=== PATIENT | female | born 1985 | race Caucasian/White ===

== ENCOUNTER 2017-09-19 06:53 | Emergency (ER) | payer OTHER ==
[2017-09-19 07:00] VITALS: BP 121/77
[2017-09-19] MEDS ORDERED: IBUPROFEN 400 MG TABLET PO STA (07:08)
--- NOTE | 2017-09-19 07:11 | ED Physician Documentation ---
History of Present Illness - Stated complaint Stated Complaint: INDEX FINGER PX - Chief complaint Chief Complaint: Ext Problem - Additonal information Additional information: hx from pt 32 f to ER with pain and swelling to L index prox phalanx and PIP no trauma, lac, infection etc mild pain yesterday evening this AM more painful and swollen no fhx arthritis etc denies preg Review of Systems Constitutional: denies: Fever : denies: Now EGA Musculoskeletal: reports: Extremity pain PD PAST MEDICAL HISTORY - Present Medications Home Medications: Ambulatory Orders Medication Instructions Recorded Confirmed Ibuprofen [Motrin] 400 mg PO Q6H PRN #30 tablet 09/19/17 - Allergies Allergies/Adverse Reactions: Allergies Allergy/AdvReac Type Severity Reaction Status Date / Time levofloxacin [From Levaquin] AdvReac Rash Verified 09/19/17 07:00 PD ED PE NORMAL - Vitals Vital signs reviewed: Yes - Extremities Extremities: Other (L hand index is moderately diffusely swollen around prox phalanx and PIP, able to flex extend, no erthema, no wamrth, no streaking, no open wounds, MSV intact) Results - Vitals Vitals: Vital Signs - 24 hr 09/19/17 06:58 Temperature 36.5 C Heart Rate 77 Respiratory 16 Rate Blood Pressure 121/77 O2 Saturation 99 Oxygen O2 Source Room air - Rads (name of study) finger Radiology: See rad report (neg - no fx, no bony changes to suggest RA, no FB, no subcut air) Departure - Departure Disposition: 01 Home, Self Care Clinical Impression: Swelling of finger Condition: Good Follow-Up: JULIAN VILLEGAS DO [Primary Care Provider] - Prescriptions: Ibuprofen [Motrin] 400 mg PO Q6H PRN #30 tablet PRN Reason: Pain Comments: Based on your exam, the finger does not appear infected or to have gout. The xray does not show any bone problems such as a fracture or arthritis - also no signs of infection such as gas in the soft tissues. I am not sure what is causing the swelling - but it seems to be a soft tissue yonatan. This should resolve with motrin for inflammation, ice for 20 min three times a day, and rest. If not better in 3 days, please follow up with your PMD If worse (red, warm, you develop a fever etc) please come back to the ER
--- NOTE | 2017-09-19 07:47 | XRAY Report ---
EXAM: LEFT SECOND DIGIT RADIOGRAPHY EXAM DATE: 09/19/2017 07:32 AM. CLINICAL HISTORY: L index prox phal and PIP pain and swell. COMPARISON: None. TECHNIQUE: 3 views. FINDINGS: Bones: Normal. No fracture or bone lesion. Joints: Normal. No subluxations. Soft Tissues: soft tissue swelling. IMPRESSION: Normal digit radiography. [facility] Referring Provider Line: [phone] SITE ID: [id number]
--- NOTE | 2017-09-19 07:47 | XRAY Preliminary Report ---
Exam: XR FINGER(S) LT IMPRESSION: Normal digit radiography. [facility] SITE ID: [id number]
== END 2017-09-19 08:14 | disposition home or self-care (01) ==
LOC: ED 06:53
DX: R22.32 Localized swelling, mass and lump, left upper limb (principal)
CPT/HCPCS: 73140; 99283; A9270

== ENCOUNTER 2017-10-10 20:41 | Emergency (ER) | payer OTHER ==
[2017-10-10 20:46] VITALS: BP 108/71
--- NOTE | 2017-10-10 21:03 | ED Physician Documentation ---
PD HPI LOWER EXT INJURY - Stated complaint Stated Complaint: GLF - Chief complaint Chief Complaint: Ext Problem - History obtained from History obtained from: Patient - History of Present Illness PD HPI LOW EXT INJURY LOCATION: Left, Ankle Type of injury: Twist Where injury occurred: Home Timing - onset: Today Timing - details: Abrupt onset, Still present Similar symptoms before: Has not had sx before Recently seen: Not recently seen - Additional information Additional information: Patient is a 32 year old female with no significant past medical history who is presenting to the emergency department for right sided ankle pain. patient states that she was walking her dog when she stepped in a ditch and twisted her ankle. Patient denies any other trauma. Review of Systems Ten Systems: 10 systems reviewed and negative Musculoskeletal: reports: Extremity pain PD PAST MEDICAL HISTORY - Past Medical History Past Medical History: Yes - Past Surgical History Past Surgical History: No - Present Medications Home Medications: Ambulatory Orders Medication Instructions Recorded Confirmed Cetirizine [ZyrTEC] 10 mg PO DAILY 10/10/17 10/10/17 Loratadine [Claritin] 10 mg PO DAILY 10/10/17 10/10/17 raNITIdine [Zantac] 150 mg PO DAILY 10/10/17 10/10/17 - Allergies Allergies/Adverse Reactions: Allergies Allergy/AdvReac Type Severity Reaction Status Date / Time levofloxacin [From Levaquin] AdvReac Rash Verified 10/10/17 20:46 - Social History Does the pt smoke?: No Smoking Status: Never smoker Does the pt drink ETOH?: Yes Does the pt have substance abuse?: No - Immunizations Immunizations are current?: Yes - POLST Patient has POLST: No PD ED PE NORMAL - Vitals Vital signs reviewed: Yes - General General: Alert and oriented X 3 - HEENT HEENT: Atraumatic - Cardiac Cardiac: RRR - Respiratory Respiratory: No respiratory distress - Neuro Neuro: Alert and oriented X 3 PD ED PE EXPANDED - Extremities Extremities: Left ankle (mild tenderness to palpation of lateral maleolus, pain with weight bearing) Results - Vitals Vitals: Vital Signs - 24 hr 10/10/17 20:42 Temperature 36.7 C Heart Rate 77 Respiratory 15 Rate Blood Pressure 108/71 O2 Saturation 100 Oxygen O2 Source Room air - Rads (name of study) left ankle Radiology: Final report received (normal) PD MEDICAL DECISION MAKING - ED course Complexity details: reviewed old records, reviewed results, re-evaluated patient , considered differential, d/w patient ED course: Patient was seen and examined at bedside. Patient was sent for imaging. When patient returned the results were reviewed. there was no acute fracture or dislocation. patient required no further work up and was stable for discharge with outpatient follow up. - Sepsis Event Vital Signs: Vital Signs - 24 hr 10/10/17 20:42 Temperature 36.7 C Heart Rate 77 Respiratory 15 Rate Blood Pressure 108/71 O2 Saturation 100 Oxygen O2 Source Room air Departure - Departure Disposition: 01 Home, Self Care Clinical Impression: Ankle sprain Condition: Good Instructions: ED Sprain Ankle W X Ray Follow-Up: JULIAN VILLEGAS DO [Primary Care Provider] - As Needed Comments: Your x-ray today was negative. there was no fracture or dislocation. You do have an ankle sprain. You can take motrin or tylenol as needed for pain. you should ice your ankle at least 4 times a day and keep it elevated. You can wear the brace for comfort. you should follow up with your doctor if your symptoms don't improve in the next 10-14 days.
--- NOTE | 2017-10-10 21:17 | XRAY Report ---
Procedure Date: 10/10/2017 Accession Number: [id number] / [id number] Procedure: XR - Ankle 3 View RT CPT Code: FULL RESULT: EXAM: RIGHT ANKLE RADIOGRAPHY EXAM DATE: 10/10/2017 09:02 PM. CLINICAL HISTORY: Twisted ankle. COMPARISON: None. TECHNIQUE: 3 views. FINDINGS: Bones: No acute fracture. Joints: Normal. No effusion. No subluxations. The ankle mortise is normally aligned. Soft Tissues: No focal soft tissue swelling. IMPRESSION: No acute osseus abnormality. [facility]
== END 2017-10-10 21:47 | disposition home or self-care (01) ==
LOC: ED 20:41
DX: S93.402A Sprain of unspecified ligament of left ankle, initial encounter (principal); X50.1XXA Overexertion from prolonged static or awkward postures, initial encounter; Y93.K1 Activity, walking an animal; Y92.488 Other paved roadways as the place of occurrence of the external cause
CPT/HCPCS: 99282; 99283

== ENCOUNTER 2018-06-23 17:25 | Emergency (ER) | payer OTHER ==
[2018-06-23 18:25] LABS: BILIRUBIN,URINE NEGATIVE (NEGATIVE); GLUCOSE, URINE (UA) NEGATIVE (NEGATIVE); KETONES,URINE (UA) NEGATIVE (NEGATIVE); LEUKOCYTE ESTERASE, URINE NEGATIVE (NEGATIVE); NITRITE,URINE NEGATIVE (NEGATIVE); OCCULT BLOOD,URINE NEGATIVE (NEGATIVE); PH,URINE 5.5 PH (5.0-7.5); PROTEIN,URINE NEGATIVE (NEGATIVE); UROBILINOGEN,URINE 0.2 (NORMAL) E.U./dL (NORMAL)
[2018-06-23 18:32] LABS: CLARITY,URINE CLEAR (CLEAR); HCG UR QUAL NEGATIVE
--- NOTE | 2018-06-23 18:32 | ED Physician Documentation ---
History of Present Illness - Stated complaint Stated Complaint: RT BACK PX - Chief complaint Chief Complaint: UTI - History obtained from History obtained from: Patient - History of Present Illness Timing: How many days ago (2) Pain level max: 4 Pain level now: 3 - Additonal information Additional information: 33-year-old female complains of right low back pain For the past 2-3 days. She states is been gradually getting worse. States that she is not having pain with urination but it "feels funny". Her last menses was 2 weeks ago. She is not having any fevers or vomiting. She states that the pain feels like it is internal. No pain with movement or palpation. Nothing makes it better or worse Review of Systems Ten Systems: 10 systems reviewed and negative Constitutional: denies: Fever, Chills Nose: denies: Rhinorrhea / runny nose, Congestion Throat: denies: Sore throat Cardiac: denies: Chest pain / pressure Respiratory: denies: Cough GI: denies: Vomiting, Diarrhea : denies: Now EGA Skin: denies: Rash Musculoskeletal: denies: Neck pain, Back pain Neurologic: denies: Headache PD PAST MEDICAL HISTORY - Past Medical History Past Medical History: No - Past Surgical History Past Surgical History: No - Present Medications Home Medications: Ambulatory Orders Medication Instructions Recorded Confirmed Cetirizine [ZyrTEC] 10 mg PO DAILY 10/10/17 06/23/18 Loratadine [Claritin] 10 mg PO DAILY 10/10/17 06/23/18 raNITIdine [Zantac] 150 mg PO DAILY 10/10/17 06/23/18 - Allergies Allergies/Adverse Reactions: Allergies Allergy/AdvReac Type Severity Reaction Status Date / Time levofloxacin [From Levaquin] AdvReac Rash Verified 06/23/18 17:30 - Social History Does the pt smoke?: No Smoking Status: Never smoker Does the pt drink ETOH?: Yes Does the pt have substance abuse?: No - Immunizations Immunizations are current?: Yes - POLST Patient has POLST: No PD ED PE NORMAL - Vitals Vital signs reviewed: Yes - General General: Alert and oriented X 3, No acute distress, Well developed/nourished - HEENT HEENT: Moist mucous membranes - Neck Neck: Supple, no meningeal sign - Cardiac Cardiac: RRR - Respiratory Respiratory: No respiratory distress, Clear bilaterally - Abdomen Abdomen: Normal bowel sounds, Soft, Non distended, Other (Tender palpation right lower quadrant at McBurney's point. No peritoneal signs) - Back Back: No CVA TTP, No spinal TTP - Derm Derm: Warm and dry - Extremities Extremities: No edema - Neuro Neuro: Alert and oriented X 3 - Psych Psych: Normal mood, Normal affect Results - Vitals Vitals: Vital Signs - 24 hr 06/23/18 06/23/18 17:29 19:56 Temperature 36.5 C 36.6 C Heart Rate 75 78 Respiratory 16 16 Rate Blood Pressure 133/88 H 125/88 H O2 Saturation 99 99 Oxygen O2 Source Room air - Labs Labs: Laboratory Tests 06/23/18 06/23/18 06/23/18 17:56 17:56 18:50 WBC 6.6 RBC 4.91 Hgb 13.8 Hct 39.2 MCV 79.8 L MCH 28.2 MCHC 35.3 RDW 13.3 Plt Count 222 MPV 7.6 L Neut # (Auto) 3.5 Lymph # (Auto) 2.7 [place] # (Auto) 0.4 Eos # (Auto) 0.0 Baso # (Auto) 0.0 Absolute Nucleated RBC 0.00 Nucleated RBC % 0.1 Sodium Potassium Chloride Carbon Dioxide Anion Gap BUN Creatinine Estimated GFR (MDRD) Glucose Calcium Total Bilirubin AST ALT Alkaline Phosphatase Total Protein Albumin Globulin Albumin/Globulin Ratio Lipase Urine Color YELLOW Urine Clarity CLEAR Urine pH 5.5 Ur Specific [place] 1.015 1.015 Urine Protein NEGATIVE Urine Glucose (UA) NEGATIVE Urine Ketones NEGATIVE Urine Occult Blood NEGATIVE Urine Nitrite NEGATIVE Urine Bilirubin NEGATIVE Urine Urobilinogen 0.2 (NORMAL) Ur Leukocyte Esterase NEGATIVE Ur Microscopic Review NOT INDICATED Urine Culture Comments NOT INDICATED Urine HCG, Qual NEGATIVE 06/23/18 18:50 WBC RBC Hgb Hct MCV MCH MCHC RDW Plt Count MPV Neut # (Auto) Lymph # (Auto) [place] # (Auto) Eos # (Auto) Baso # (Auto) Absolute Nucleated RBC Nucleated RBC % Sodium 135 Potassium 3.5 Chloride 98 L Carbon Dioxide 27 Anion Gap 10.0 BUN 14 Creatinine 0.6 Estimated GFR (MDRD) 116 Glucose 97 Calcium 9.8 Total Bilirubin 0.4 AST 25 ALT 19 Alkaline Phosphatase 57 Total Protein 8.7 H Albumin 4.8 Globulin 3.8 Albumin/Globulin Ratio 1.2 Lipase 37 Urine Color Urine Clarity Urine pH Ur Specific [place] Urine Protein Urine Glucose (UA) Urine Ketones Urine Occult Blood Urine Nitrite Urine Bilirubin Urine Urobilinogen Ur Leukocyte Esterase Ur Microscopic Review Urine Culture Comments Urine HCG, Qual - Rads (name of study) CT abdomen pelvis Radiology: Prelim report reviewed, EMP read contemporaneously, See rad report (No acute abnormalities. ) PD MEDICAL DECISION MAKING - ED course Complexity details: reviewed results, re-evaluated patient, considered differential, d/w patient ED course: 33-year-old female with right-sided abdominal/pelvic pain. Does have a large amount of stool here, possible constipation? Also has a right ovarian corpus luteum cyst, possible this is causing her pain as well? Possible mittelschmerz? She does have a history of ovarian cyst and has recently stopped control. Her appendix is visualized and normal. We will have her follow-up with her doctor for further care. Patient counseled regarding signs and symptoms for which I believe and urgent re-evaluation would be necessary. Patient with good understanding of and agreement to plan and is comfortable going home at this time This document was made in part using voice recognition software. While efforts are made to proofread this document, sound alike and grammatical errors may occur. Departure - Departure Disposition: 01 Home, Self Care Clinical Impression: Ovarian cyst, right Condition: Good Instructions: ED Cyst Ovarian Follow-Up: JULIAN VILLEGAS DO [Primary Care Provider] - Within 1 week (if not better) Comments: This should improve over the next few days. You can use Motrin or Tylenol as needed for pain. Return if you worsen Discharge Date/Time: 06/23/18 20:50
[2018-06-23 18:58] LABS: BASOPHILS % (AUTO) 0.3 %; EOSINOPHILS % (AUTO) 0.4 %; HGB - HEMOGLOBIN 13.8 g/dL (12.0-16.0); LYMPHOCYTES # (AUTO) 2.7 10^3/uL (1.5-3.5); LYMPHOCYTES % (AUTO) 41.3 %; MEAN CORPUSCULAR HEMOGLOBIN 28.2 pg (27.0-31.0); MEAN CORPUSCULAR HGB CONC 35.3 g/dL (32.0-36.0); MEAN CORPUSCULAR VOLUME 79.8 fL (81.0-99.0); MEAN PLATELET VOLUME 7.6 fL (7.9-10.8); MONOCYTES # (AUTO) 0.4 10^3/uL (0.0-1.0); MONOCYTES % (AUTO) 5.7 %; NEUTROPHILS # (AUTO) 3.5 10^3/uL (1.5-6.6); NEUTROPHILS % (AUTO) 52.3 %; PLT - PLATELET COUNT 222 10^3/uL (130-450); RED BLOOD COUNT 4.91 10^6/uL (4.20-5.40); RED CELL DISTRIBUTION WIDTH 13.3 % (12.0-15.0); WHITE BLOOD COUNT 6.6 x10^3/uL (4.8-10.8)
[2018-06-23 19:11] LABS: ALBUMIN 4.8 g/dL (3.2-5.5); ALBUMIN/GLOBULIN RATIO 1.2 (1.0-2.2); BILIRUBIN,TOTAL 0.4 mg/dL (0.2-1.0); CALCIUM 9.8 mg/dL (8.5-10.3); CREATININE 0.6 mg/dL (0.4-1.0); TOTAL PROTEIN 8.7 g/dL (6.7-8.2)
[2018-06-23] MEDS ORDERED: IOVERSOL 320 100 ML VIAL IVP ONE ×2 (19:15→20:03)
[2018-06-23 19:57] VITALS: BP 125/88
--- NOTE | 2018-06-23 20:36 | CT Report ---
Reason: RLQ abd pain Procedure Date: 06/23/2018 Accession Number: [id number] / [id number] Procedure: CT - Abdomen/Pelvis W CPT Code: FULL RESULT: EXAM: CT ABDOMEN AND PELVIS EXAM DATE: 06/23/2018 08:01 PM. CLINICAL HISTORY: RLQ abd pain. COMPARISONS: None. TECHNIQUE: Routine helical CT imaging was performed through the abdomen and pelvis. IV contrast: 90 ML OPTIRAY 320. Enteric contrast: No. Reconstructions: Coronal and sagittal. In accordance with CT protocol optimization, one or more of the following dose reduction techniques were utilized for this exam: automated exposure control, adjustment of mA and/or KV based on patient size, or use of iterative reconstructive technique. FINDINGS: ABDOMEN: Lung Bases: Incompletely included lower lungs are grossly clear. Heart size is within normal limits. No basilar effusions. Liver: Unremarkable. Spleen: Unremarkable. Pancreas: Unremarkable. Gallbladder/Bile Ducts: Gallbladder is unremarkable. Biliary tree is normal caliber. Adrenal Glands: Unremarkable. Kidneys: No mass, calculi, or hydronephrosis. Peritoneum/Mesentery/Bowel: No free fluid, free air, or collection. No intestinal obstruction or inflammation. The appendix is within normal limits. Lymph nodes: No mesenteric, periportal, or retroperitoneal lymphadenopathy. Vasculature: Abdominal aorta is nonaneurysmal. Portal vein is patent. Hepatic veins are patent. PELVIS: The bladder is unremarkable for the degree of distention. Uterus is present. Right ovarian corpus luteum. No pelvic lymphadenopathy. Bones: No suspicious osseous lesions. IMPRESSION: No acute abnormalities. [facility]
== END 2018-06-23 20:50 | disposition home or self-care (01) ==
LOC: ED 17:25
DX: N83.11 Corpus luteum cyst of right ovary (principal)
CPT/HCPCS: 36415; 74177; 80053; 81003; 81025; 83690; 85025; 99283; Q9967; 81001; 87086

== ENCOUNTER 2019-01-06 19:55 | Emergency (ER) | payer OTHER ==
--- NOTE | 2019-01-06 20:33 | ED Physician Documentation ---
PD HPI CHEST PAIN - Stated complaint Stated Complaint: CP - Chief complaint Chief Complaint: Cardiac - History obtained from History obtained from: Patient - History of Present Illness Timing - onset: How many days ago (3) Timing - onset during: Rest Timing - duration: Days (3) Timing - details: Gradual onset, Still present Quality: Pressure, Aching, Sharp Location: Substernal Radiation: No: Jaw, Neck, Back, Abdominal, Left upper extremity, Right upper extremity Improved by: Nothing Worsened by: Other (nothing) Associated symptoms: No: Shortness of air, Diaphoresis, Nausea, Vomiting, Feeling faint / dizzy, General Weakness, Palpitations, Cough Similar symptoms before: Has not had sx before Recently seen: Not recently seen - Additional information Additional information: Previously well 33-year-old female has developed some substernal aching about 3 days ago and she has not had any modifying factors with this she is had the pain persist with her over the weekend and she is now come into the emergency department for evaluation. She states she does not have any radiation of the pain she does not have any diaphoresis dyspnea or exertional component to her pain. She does periodically have a sharp pain otherwise the pain is a dull burning. She denies any excessive use of caffeine she denies any alcohol use she denies any use of ibuprofen. Review of Systems Constitutional: denies: Fever, Chills, Myalgias, Fatigue, Sweats Eyes: denies: Decreased vision Ears: denies: Ear pain Nose: denies: Rhinorrhea / runny nose, Congestion Throat: denies: Sore throat Cardiac: reports: Chest pain / pressure. denies: Palpitations, Pedal edema, Calf pain Respiratory: denies: Dyspnea, Cough, Wheezing GI: reports: Abdominal Pain (transient 3 days ago). denies: Nausea, Vomiting : denies: Dysuria, Frequency Skin: denies: Rash Musculoskeletal: denies: Neck pain, Back pain, Extremity pain PD PAST MEDICAL HISTORY - Past Medical History Past Medical History: Yes Cardiovascular: None Respiratory: None Neuro: None Endocrine/Autoimmune: None GI: None TESTER ARMATURE OR FIELDS: None : None HEENT: Chronic sinusitis Psych: None Musculoskeletal: None Derm: None - Past Surgical History Past Surgical History: No HEENT: Other - Present Medications Home Medications: Ambulatory Orders Medication Instructions Recorded Confirmed Cetirizine [ZyrTEC] 10 mg PO DAILY 10/10/17 06/23/18 Loratadine [Claritin] 10 mg PO DAILY 10/10/17 06/23/18 raNITIdine [Zantac] 150 mg PO DAILY 10/10/17 06/23/18 Sucralfate [Carafate] 1 gm PO ACHS #60 tablet 01/06/19 - Allergies Allergies/Adverse Reactions: Allergies Allergy/AdvReac Type Severity Reaction Status Date / Time levofloxacin [From Levaquin] AdvReac Rash Verified 06/23/18 17:30 - Social History Does the pt smoke?: No Smoking Status: Never smoker Does the pt drink ETOH?: Yes Does the pt have substance abuse?: No - Immunizations Immunizations are current?: Yes - POLST Patient has POLST: No PD ED PE NORMAL - Vitals Vital signs reviewed: Yes (hypertensive mild ) - General General: Alert and oriented X 3, No acute distress, Well developed/nourished - HEENT HEENT: Atraumatic, PERRL, EOMI - Neck Neck: Supple, no meningeal sign, No bony TTP - Cardiac Cardiac: RRR, No murmur - Respiratory Respiratory: No respiratory distress, Clear bilaterally, Other (no chest wall tenderness ) - Abdomen Abdomen: Soft, Non tender - Back Back: No CVA TTP, No spinal TTP - Derm Derm: Normal color, Warm and dry, No rash - Extremities Extremities: No deformity, No edema - Neuro Neuro: Alert and oriented X 3, drill 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, No motor deficit, No sensory deficit, Normal speech Eye Opening: Spontaneous Motor: Obeys Commands Verbal: Oriented GCS Score: 15 - Psych Psych: Normal mood, Normal affect Results - Vitals Vitals: Vital Signs - 24 hr 01/06/19 01/06/19 01/06/19 20:00 20:08 21:00 Temperature 37 C Heart Rate 70 65 Respiratory 16 16 Rate Blood Pressure 141/95 H 126/89 H Blood Pressure 123/80 [Left] Blood Pressure 122/86 H [Right] O2 Saturation 100 98 Oxygen O2 Source Room air - EKG (time done) 2000 Rate: Rate (enter#) (72) QRS: LVH Other comments: Other comments (RSR' normal variant) Computer interpretation: Agree with computer - Labs Labs: Laboratory Tests 01/06/19 01/06/19 01/06/19 21:03 21:03 21:03 WBC 6.6 RBC 4.52 Hgb 12.8 Hct 38.1 MCV 84.3 MCH 28.3 MCHC 33.6 RDW 11.9 L Plt Count 228 MPV 10.1 Neut # (Auto) 3.4 Lymph # (Auto) 2.6 [place] # (Auto) 0.5 Eos # (Auto) 0.0 Baso # (Auto) 0.1 Absolute Nucleated RBC 0.00 Nucleated RBC % 0.0 Sodium 139 Potassium 3.8 Chloride 104 Carbon Dioxide 25 Anion Gap 10.0 BUN 12 Creatinine 0.7 Estimated GFR (MDRD) 97 Glucose 97 Calcium 9.5 Total Bilirubin 0.2 AST 19 ALT < 10 L Alkaline Phosphatase 38 L Troponin I High Sens < 2.3 L Total Protein 7.6 Albumin 3.9 Globulin 3.7 Albumin/Globulin Ratio 1.1 Lipase 35 Urine Color Urine Clarity Urine pH Ur Specific [place] Urine Protein Urine Glucose (UA) Urine Ketones Urine Occult Blood Urine Nitrite Urine Bilirubin Urine Urobilinogen Ur Leukocyte Esterase Ur Microscopic Review Urine Culture Comments Urine HCG, Qual 01/06/19 21:13 WBC RBC Hgb Hct MCV MCH MCHC RDW Plt Count MPV Neut # (Auto) Lymph # (Auto) [place] # (Auto) Eos # (Auto) Baso # (Auto) Absolute Nucleated RBC Nucleated RBC % Sodium Potassium Chloride Carbon Dioxide Anion Gap BUN Creatinine Estimated GFR (MDRD) Glucose Calcium Total Bilirubin AST ALT Alkaline Phosphatase Troponin I High Sens Total Protein Albumin Globulin Albumin/Globulin Ratio Lipase Urine Color YELLOW Urine Clarity CLEAR Urine pH 6.0 Ur Specific [place] 1.020 Urine Protein NEGATIVE Urine Glucose (UA) NEGATIVE Urine Ketones NEGATIVE Urine Occult Blood NEGATIVE Urine Nitrite NEGATIVE Urine Bilirubin NEGATIVE Urine Urobilinogen 0.2 (NORMAL) Ur Leukocyte Esterase NEGATIVE Ur Microscopic Review NOT INDICATED Urine Culture Comments NOT INDICATED Urine HCG, Qual NEGATIVE - Rads (name of study) chest Radiology: Prelim report reviewed (Impression: Negative chest. ), EMP read indepedently, See rad report PD MEDICAL DECISION MAKING - ED course Complexity details: reviewed old records, reviewed results, re-evaluated patient, considered differential, d/w patient ED course: 33-year-old female central chest pressure and sharp pain has improvement with use of viscous lidocaine and Mylanta and she is administered Pepcid and Carafate.Her diagnostics are otherwise unremarkable. Departure - Departure Disposition: 01 Home, Self Care Clinical Impression: Reflux esophagitis Condition: Stable Instructions: ED GERD Follow-Up: JULIAN VILLEGAS DO [Primary Care Provider] - Prescriptions: Sucralfate [Carafate] 1 gm PO ACHS #60 tablet Comments: today it appears your chest pain is related to your esophagus and reduction of acid is the mainstay of treatment. Avoid alcohol, ibuprofen, over eating and eating too close to bedtime. Take Pepcid or other over the counter medication to reduce acid on a regular basis for at least 10 days. Take the carafate with this to aid healing.
[2019-01-06] MEDS ORDERED: LIDOCAINE VISCOUS 2% 15 ML UDC MM STA (20:47)
[2019-01-06] MEDS ORDERED: MAG HYDROX/AL HYDROX/SIMETH 30 ML UDC PO STA (20:48)
[2019-01-06 21:06] LABS: BASOPHILS # (AUTO) 0.1 10^3/uL (0.0-0.1); BASOPHILS % (AUTO) 0.8 %; EOSINOPHILS % (AUTO) 0.5 %; HGB - HEMOGLOBIN 12.8 g/dL (12.0-16.0); LYMPHOCYTES # (AUTO) 2.6 10^3/uL (1.5-3.5); LYMPHOCYTES % (AUTO) 40.1 %; MEAN CORPUSCULAR HEMOGLOBIN 28.3 pg (27.0-31.0); MEAN CORPUSCULAR HGB CONC 33.6 g/dL (32.0-36.0); MEAN CORPUSCULAR VOLUME 84.3 fL (81.0-99.0); MEAN PLATELET VOLUME 10.1 fL (7.9-10.8); MONOCYTES # (AUTO) 0.5 10^3/uL (0.0-1.0); MONOCYTES % (AUTO) 7.3 %; NEUTROPHILS # (AUTO) 3.4 10^3/uL (1.5-6.6); PLT - PLATELET COUNT 228 10^3/uL (130-450); RED BLOOD COUNT 4.52 10^6/uL (4.20-5.40); RED CELL DISTRIBUTION WIDTH 11.9 % (12.0-15.0); WHITE BLOOD COUNT 6.6 x10^3/uL (4.8-10.8)
[2019-01-06 21:20] LABS: ALBUMIN 3.9 g/dL (3.2-5.5); ALBUMIN/GLOBULIN RATIO 1.1 (1.0-2.2); ALKALINE PHOSPHATASE 38 IU/L (42-121); ALT ALANINE AMINOTRANSFERASE < 10 IU/L (10-60); AST ASPARTATE AMINOTRANSFERASE 19 IU/L (10-42); BILIRUBIN,TOTAL 0.2 mg/dL (0.2-1.0); BUN - BLOOD UREA NITROGEN 12 mg/dL (6-20); CALCIUM 9.5 mg/dL (8.5-10.3); CARBON DIOXIDE - CO2 25 mmol/L (21-32); CHLORIDE 104 mmol/L (101-111); CREATININE 0.7 mg/dL (0.4-1.0); GFR - MDRD 97 (>89); GLUCOSE 97 mg/dL (70-100); LIPASE 35 U/L (22-51); SODIUM 139 mmol/L (135-145); TOTAL PROTEIN 7.6 g/dL (6.7-8.2)
[2019-01-06 21:21] LABS: BILIRUBIN,URINE NEGATIVE (NEGATIVE); GLUCOSE, URINE (UA) NEGATIVE (NEGATIVE); KETONES,URINE (UA) NEGATIVE (NEGATIVE); LEUKOCYTE ESTERASE, URINE NEGATIVE (NEGATIVE); NITRITE,URINE NEGATIVE (NEGATIVE); OCCULT BLOOD,URINE NEGATIVE (NEGATIVE); PROTEIN,URINE NEGATIVE (NEGATIVE); UROBILINOGEN,URINE 0.2 (NORMAL) E.U./dL (NORMAL)
[2019-01-06 21:22] LABS: CLARITY,URINE CLEAR (CLEAR)
[2019-01-06 21:23] LABS: HCG UR QUAL NEGATIVE
--- NOTE | 2019-01-06 21:32 | XRAY Report ---
Reason: chest pain Procedure Date: 01/06/2019 Accession Number: [id number] / [id number] Procedure: XR - Chest 2 View X-Ray CPT Code: 09801 FULL RESULT: EXAM: CHEST RADIOGRAPHY EXAM DATE: 01/06/2019 08:54 PM. CLINICAL HISTORY: Chest pain. COMPARISON: None. TECHNIQUE: 2 views. FINDINGS: Lungs/Pleura: No focal opacities evident. No pleural effusion. No pneumothorax. Normal volumes. Mediastinum: Heart and mediastinal contours are unremarkable. Other: None. IMPRESSION: Negative chest. [facility]
[2019-01-06] MEDS ORDERED: FAMOTIDINE 20 MG TABLET PO STA (21:44)
[2019-01-06] MEDS ORDERED: SUCRALFATE 1 GM/10 ML UDC PO STA (21:44)
[2019-01-06 22:14] VITALS: BP 120/78
== END 2019-01-06 22:17 | disposition home or self-care (01) ==
LOC: ED 19:55
DX: K21.0 Gastro-esophageal reflux disease with esophagitis (principal)
CPT/HCPCS: 36415; 71046; 80053; 81003; 81025; 83690; 84484; 85025; 93005; 99284; A9270; 81001; 87086

== ENCOUNTER 2020-07-17 08:00 | Outpatient (CLI) | payer OTHER | END 2020-07-17 23:59 | disposition home or self-care (01) | LOC: LAB.R 08:00 | PROVIDERS: ATTEND Nurse Practitioner | DX: N39.0 Urinary tract infection, site not specified (principal) | CPT/HCPCS: 87086 ==

== ENCOUNTER 2020-07-24 18:20 | Emergency (ER) | payer OTHER ==
[2020-07-24] MEDS ORDERED: SODIUM CHLORIDE 0.9% 1,000 ML IV STA (18:29)
[2020-07-24 18:38] LABS: BILIRUBIN,URINE NEGATIVE (NEGATIVE); GLUCOSE, URINE (UA) NEGATIVE (NEGATIVE); KETONES,URINE (UA) NEGATIVE (NEGATIVE); LEUKOCYTE ESTERASE, URINE NEGATIVE (NEGATIVE); NITRITE,URINE NEGATIVE (NEGATIVE); OCCULT BLOOD,URINE TRACE-INTA (NEGATIVE); PROTEIN,URINE NEGATIVE (NEGATIVE); UROBILINOGEN,URINE 0.2 (NORMAL) E.U./dL (NORMAL)
[2020-07-24 18:43] LABS: CLARITY,URINE CLEAR (CLEAR); HCG UR QUAL NEGATIVE
[2020-07-24 18:48] LABS: BASOPHILS % (AUTO) 0.7 %; EOSINOPHILS # (AUTO) 0.1 10^3/uL (0.0-0.7); EOSINOPHILS % (AUTO) 1.1 %; HCT - HEMATOCRIT 40.8 % (37.0-47.0); HGB - HEMOGLOBIN 14.1 g/dL (12.0-16.0); LYMPHOCYTES # (AUTO) 0.4 10^3/uL (1.5-3.5); LYMPHOCYTES % (AUTO) 8.3 %; MEAN CORPUSCULAR HEMOGLOBIN 28.8 pg (27.0-31.0); MEAN CORPUSCULAR HGB CONC 34.6 g/dL (32.0-36.0); MEAN CORPUSCULAR VOLUME 83.3 fL (81.0-99.0); MONOCYTES # (AUTO) 0.2 10^3/uL (0.0-1.0); MONOCYTES % (AUTO) 3.4 %; NEUTROPHILS # (AUTO) 3.7 10^3/uL (1.5-6.6); PLT - PLATELET COUNT 143 10^3/uL (130-450); RED CELL DISTRIBUTION WIDTH 11.9 % (12.0-15.0); WHITE BLOOD COUNT 4.4 x10^3/uL (4.8-10.8)
[2020-07-24 19:04] LABS: ALBUMIN 3.9 g/dL (3.2-5.5); BILIRUBIN,TOTAL 0.3 mg/dL (0.2-1.0); CALCIUM 9.1 mg/dL (8.5-10.3); CREATININE 0.8 mg/dL (0.4-1.0); POTASSIUM 3.9 mmol/L (3.5-5.0); TOTAL PROTEIN 7.7 g/dL (6.7-8.2)
--- NOTE | 2020-07-24 19:18 | ED Physician Documentation ---
History of Present Illness - Stated complaint Stated Complaint: N/V/D/CHILLS - Chief complaint Chief Complaint: Abd Pain - History obtained from History obtained from: Patient - History of Present Illness Timing: Today Pain level max: 3 Pain level now: 2 - Additonal information Additional information: 35-year-old female presents to the emergency department complaining of fever today, T-max 102.2 at home. Mild nasal congestion. Diarrhea x2. Minimal abdominal cramping. No vomiting. States she was recently treated for UTI with Bactrim and has finished this. No known illnesses that she has been exposed to including Covid. No cough. No urinary symptoms currently. No vaginal bleeding or discharge. Better with Tylenol, nothing makes it worse. Review of Systems Constitutional: reports: Fever, Chills Throat: denies: Sore throat Cardiac: denies: Chest pain / pressure, Palpitations Respiratory: denies: Dyspnea, Cough, Wheezing GI: reports: Abdominal Pain (crampy, diffuse), Nausea, Diarrhea. denies: Vomiting, Hematemesis, Bloody / black stool : denies: Dysuria, Frequency, Hesitancy, Now EGA Skin: denies: Rash Musculoskeletal: denies: Neck pain, Back pain Neurologic: denies: Headache PD PAST MEDICAL HISTORY - Past Medical History Past Medical History: Yes Cardiovascular: None Respiratory: None Neuro: None Endocrine/Autoimmune: None GI: None AGRICULTURE EXTENSION SPECIALIST: None : None HEENT: Chronic sinusitis Psych: None Musculoskeletal: None Derm: None - Past Surgical History Past Surgical History: No HEENT: Rhinoplasty, Other - Present Medications Home Medications: Ambulatory Orders Medication Instructions Recorded Confirmed Cetirizine [ZyrTEC] 10 mg PO DAILY 10/10/17 07/24/20 Loratadine [Claritin] 10 mg PO DAILY 10/10/17 07/24/20 Ondansetron Odt [Zofran] 4 mg TL Q6H PRN #10 tablet 07/24/20 - Allergies Allergies/Adverse Reactions: Allergies Allergy/AdvReac Type Severity Reaction Status Date / Time levofloxacin [From Levaquin] AdvReac Rash Verified 07/24/20 18:22 - Social History Does the pt smoke?: No Smoking Status: Never smoker Does the pt drink ETOH?: Yes Does the pt have substance abuse?: No - Immunizations Immunizations are current?: Yes - POLST Patient has POLST: No PD ED PE NORMAL - Vitals Vital signs reviewed: Yes - General General: Alert and oriented X 3, No acute distress - HEENT HEENT: PERRL, Ears normal, Moist mucous membranes, Pharynx benign - Neck Neck: Supple, no meningeal sign, No adenopathy - Cardiac Cardiac: RRR, Strong equal pulses - Respiratory Respiratory: No respiratory distress, Clear bilaterally - Abdomen Abdomen: Normal bowel sounds, Soft, Non tender, Non distended - Back Back: No CVA TTP, No spinal TTP - Derm Derm: Warm and dry, No rash - Extremities Extremities: No edema - Neuro Neuro: Alert and oriented X 3 - Psych Psych: Normal mood, Normal affect Results - Vitals Vitals: Vital Signs - 24 hr 07/24/20 07/24/20 07/24/20 18:23 18:49 19:45 Temperature 38.4 C H 37.6 C Heart Rate 112 H 96 87 Respiratory 20 20 16 Rate Blood Pressure 111/66 118/80 113/66 O2 Saturation 99 98 96 07/24/20 20:53 Temperature 37.9 C Heart Rate 89 Respiratory 18 Rate Blood Pressure 119/60 O2 Saturation 100 Oxygen O2 Source Room air - Labs Labs: Laboratory Tests 07/24/20 07/24/20 07/24/20 18:32 18:32 18:40 WBC 4.4 L RBC 4.90 Hgb 14.1 Hct 40.8 MCV 83.3 MCH 28.8 MCHC 34.6 RDW 11.9 L Plt Count 143 MPV 10.0 Neut # (Auto) 3.7 Lymph # (Auto) 0.4 L [place] # (Auto) 0.2 Eos # (Auto) 0.1 Baso # (Auto) 0.0 Absolute Nucleated RBC 0.00 Nucleated RBC % 0.0 Sodium Potassium Chloride Carbon Dioxide Anion Gap BUN Creatinine Estimated GFR (MDRD) Glucose Lactic Acid Calcium Total Bilirubin AST ALT Alkaline Phosphatase Total Protein Albumin Globulin Albumin/Globulin Ratio Lipase Urine Color YELLOW Urine Clarity CLEAR Urine pH 6.0 Ur Specific [place] 1.025 Urine Protein NEGATIVE Urine Glucose (UA) NEGATIVE Urine Ketones NEGATIVE Urine Occult Blood TRACE-INTA Urine Nitrite NEGATIVE Urine Bilirubin NEGATIVE Urine Urobilinogen 0.2 (NORMAL) Ur Leukocyte Esterase NEGATIVE Ur Microscopic Review NOT INDICATED Urine Culture Comments NOT INDICATED Urine HCG, Qual NEGATIVE Nasal Adenovirus (PCR) Nasal B. parapertussis DNA (PCR) Nasal Coronavir 229E PCR Nasal Coronavir HKU1 PCR Nasal Coronavir NL63 PCR Nasal Coronavir OC43 PCR Nasal Enterovir/Rhinovir PCR Nasal Influenza B PCR Nasal Influenza A PCR Nasal Parainfluen 1 PCR Nasal Parainfluen 2 PCR Nasal Parainfluen 3 PCR Nasal Parainfluen 4 PCR Nasal RSV (PCR) Nasal B.pertussis DNA PCR Nasal C.pneumoniae (PCR) [place] Human Metapneumo PCR Nasal M.pneumoniae (PCR) Nasal SARS-CoV-2 (PCR) 07/24/20 07/24/20 07/24/20 18:40 18:40 19:14 WBC RBC Hgb Hct MCV MCH MCHC RDW Plt Count MPV Neut # (Auto) Lymph # (Auto) [place] # (Auto) Eos # (Auto) Baso # (Auto) Absolute Nucleated RBC Nucleated RBC % Sodium 131 L Potassium 3.9 Chloride 100 L Carbon Dioxide 20 L Anion Gap 11.0 BUN 13 Creatinine 0.8 Estimated GFR (MDRD) 82 L Glucose 109 H Lactic Acid 1.7 Calcium 9.1 Total Bilirubin 0.3 AST 23 ALT 16 Alkaline Phosphatase 51 Total Protein 7.7 Albumin 3.9 Globulin 3.8 Albumin/Globulin Ratio 1.0 Lipase 32 Urine Color Urine Clarity Urine pH Ur Specific [place] Urine Protein Urine Glucose (UA) Urine Ketones Urine Occult Blood Urine Nitrite Urine Bilirubin Urine Urobilinogen Ur Leukocyte Esterase Ur Microscopic Review Urine Culture Comments Urine HCG, Qual Nasal Adenovirus (PCR) NOT DETECTED Nasal B. parapertussis DNA (PCR) NOT DETECTED Nasal Coronavir 229E PCR NOT DETECTED Nasal Coronavir HKU1 PCR NOT DETECTED Nasal Coronavir NL63 PCR NOT DETECTED Nasal Coronavir OC43 PCR NOT DETECTED Nasal Enterovir/Rhinovir PCR NOT DETECTED Nasal Influenza B PCR NOT DETECTED Nasal Influenza A PCR NOT DETECTED Nasal Parainfluen 1 PCR NOT DETECTED Nasal Parainfluen 2 PCR NOT DETECTED Nasal Parainfluen 3 PCR NOT DETECTED Nasal Parainfluen 4 PCR NOT DETECTED Nasal RSV (PCR) NOT DETECTED Nasal B.pertussis DNA PCR NOT DETECTED Nasal C.pneumoniae (PCR) NOT DETECTED [place] Human Metapneumo PCR NOT DETECTED Nasal M.pneumoniae (PCR) NOT DETECTED Nasal SARS-CoV-2 (PCR) NOT DETECTED PD MEDICAL DECISION MAKING - ED course Complexity details: reviewed results, re-evaluated patient, considered differential, d/w patient ED course: Unclear etiology the patient's symptoms. Appears to be a likely viral illness. Possible viral gastroenteritis. Abdomen remains soft, nontender nondistended on serial exam. Negative viral panel. Negative Covid. Negative urine testing. No evidence of upper respiratory illness. No indication for x-ray. We will prescribe antiemetics for home and have her follow-up with her doctor as needed for further care. Patient is very well-appearing, nontoxic. Patient counseled regarding signs and symptoms for which I believe and urgent re-evaluation would be necessary. Patient with good understanding of and agreement to plan and is comfortable going home at this time This document was made in part using voice recognition software. While efforts are made to proofread this document, sound alike and grammatical errors may occur. Departure - Departure Disposition: 01 Home, Self Care Clinical Impression: Viral gastroenteritis Condition: Good Instructions: ED Gastroenteritis Viral Follow-Up: JULIAN VILLEGAS DO [Primary Care Provider] - Within 1 week Prescriptions: Ondansetron Odt [Zofran] 4 mg TL Q6H PRN #10 tablet PRN Reason: Nausea / Vomiting Comments: Your testing does not show any acute abnormalities today. Follow-up with your doctor for further care. Drink plenty of fluids and rest. Your Covid test was negative today as well. Discharge Date/Time: 07/24/20 20:40
[2020-07-24 20:08] LABS: B. PARAPERTUSSIS- RESP PCR PAN NOT DETECTED; B. PERTUSSIS- RESP PCR PANEL NOT DETECTED; C. PNEUMONIAE- RESP PCR PANEL NOT DETECTED; CORONAVIRUS 229E-RESP PCR NOT DETECTED; CORONAVIRUS HKU1-RESP PCR NOT DETECTED; CORONAVIRUS NL63-RESP PCR NOT DETECTED; CORONAVIRUS OC43-RESP PCR NOT DETECTED; HUMAN METAPNEUMOVIRUS NOT DETECTED; INFLUENZA A- RESP PCR PANEL NOT DETECTED; INFLUENZA B - RESP PCR PANEL NOT DETECTED; M. PNEUMONIAE- RESP PCR PANEL NOT DETECTED; PARAINFLUENZA VIRUS 1 NOT DETECTED; PARAINFLUENZA VIRUS 2 NOT DETECTED; PARAINFLUENZA VIRUS 3 NOT DETECTED; PARAINFLUENZA VIRUS 4 NOT DETECTED; RHINOVIRUS/ENTEROVIRUS NOT DETECTED; RSV- RESP PCR PANEL NOT DETECTED; SARS-CoV-2 -RESP PCR PANEL NOT DETECTED
[2020-07-24 20:55] VITALS: BP 119/60
--- OUTSIDE RECORDS SUMMARY | 2020-07-29 02:21 | EXTERNAL MEDICAL SUMMARY RPT | Continuity of Care Document ---
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 Unavailable Unavailable MD Unavailable Unavailable Problems date description facility 20200522 Adverse effect of other vaccines and bi ological substances, All initial encounter 20200522 Details of drug misuse behavior All 20200522 Other and unspecified vaccines and biol ogical substances All causing adverse effects in therapeutic u se 20200522 Patient Education All 20200522 Adverse reaction to vaccine product Al l 20200522 Never smoker All 20200522 Tobacco use and exposure All 02337844 Alcohol use All 20642352 Tobacco smoking status NHIS All 50544690 Tobacco use and exposure All 20200524 Details of drug misuse behavior All 20200524 Never smoker All 20200524 Tobacco smoking status NHIS All 20200524 Alcohol use All 20200717 Acute urinary tract infection All 54741639 Alcohol use All 33068529 Tobacco use and exposure All 17582618 Urinary tract infection, site not speci fied All 99818459 Details of drug misuse behavior All 20200717 Never smoker All 74679691 Tobacco smoking status NHIS All 27582868 Urine C&S All Medications date description facility 06963739 [facility] All 40082501 FLUTICASONE PROPIONATE HFA All 73634446 DROSPIRENONE-ETHINYL ESTRADIOL All 06919330 [facility]PH[facility] All 04574284 DROSPIRENONE-ETHINYL ESTRADIOL All 59763973 FLUTICASONE PROPIONATE HFA All 92793314 CEPHAL[facility] All 23818309 FLUTICASONE PROPIONATE HFA All 52271237 DROSPIRENONE-ETHINYL ESTRADIOL All 29214425 CEPHALEXIN All 92306091 DROSPIRENONE-ETHINYL ESTRADIOL All 23093342 FLUTICASONE PROPIONATE HFA All 48961044 CEPHAL[facility]IN All 25371138 FLUTICASONE PROPIONATE HFA All 90569690 DROSPIRENONE-ETHINYL ESTRADIOL All 72207100 CEPHALEXIN All 30061264 DROSPIRENONE-ETHINYL ESTRADIOL All 26078424 FLUTICASONE PROPIONATE HFA All 59106826 HYDROXYZINE HCL All 06054622 FAMOTIDINE All 01075049 FAMOTIDINE All [id number] HYDROXYZINE HCL All 75949742 HYDROXYZINE HCL All 70254482 FAMOTIDINE All 98070656 FAMOTIDINE All 13152178 HYDROXYZINE HCL All 13609316 HYDROXYZINE HCL All 35655610 FAMOTIDINE All 92509675 FAMOTIDINE All 34817650 HYDROXYZINE HCL All 96735656 SULFAMETHOXAZOLE-TRIMETHOPRIM All 71948401 PHENAZOPYRIDINE HCL All 13377641 PHENAZOPYRIDINE HCL All 43000460 SULFAMETHOXAZOLE-TRIMETHOPRIM All 61148367 SULFAMETHOXAZOLE-TRIMETHOPRIM All 92072429 PHENAZOPYRIDINE HCL All 41827023 PHENAZOPYRIDINE HCL All 82941026 SULFAMETHOXAZOLE-TRIMETHOPRIM All Procedures date description facility [id number] IM or SQ Injection All date description facility [id number] Dexamethasone Sodium Phosphate Inj 10mg /1mL All date description facility 06928882 IM or SQ Injection All date description facility 08020568 Dexamethasone Sodium Phosphate Inj 10mg /1mL All date description facility 27161612 IM or SQ Injection All date description facility 79714750 Dexamethasone Sodium Phosphate Inj 10mg /1mL All date description facility 74314251 POC URINALYSIS DIP All date description facility 99216794 POC URINALYSIS DIP All Results test status date ordered by attending specimen stuart e DIPSTICK_URINE_STRIP_L unknown [id number] unknown unknown unknown OT_NUMBER Urine_HCG_Lot_Number_C unknown [id number] unknown unknown unknown LIA_Waived_ Urine_HCG_Exp_Date_CLI unknown 01321954 unknown unknown unknown A_Waived_ protein_urine_semiquan unknown 03630130 unknown unknown unknown titative_dipstick_ glucose_urine_semiquan unknown 91499540 unknown unknown unknown titative Erythrocytes_area_in_U unknown 57207918 unknown unknown unknown rine_sediment_by_Micros copy_high_power_field RBC_urine_dipstick unknown 26286274 unknown unknown unkn own Albumin_Presence_in_Ur unknown 53324588 unknown unknown unknown ine Choriogonadotropin_pre unknown 44393082 unknown unknown unknown gnancy_test_Presence_in _Urine human_chorionic_gonado unknown 10926324 unknown unknown unknown tropin_urine_qualitativ e_urine_pregnancy_test_ urine_color unknown 93131806 unknown unknown unknown bilirubin_urine unknown 38432662 unknown unknown unknown ketones_urine_by_test_ unknown 07842938 unknown unknown unknown strip nitrite_urine_semiquan unknown 14449490 unknown unknown unknown titative pH_urine_semiquantitat unknown 25947246 unknown unknown unknown eloy specific_gravity_urine unknown 26333438 unknown unknown unknown urobilinogen_urine_sem unknown 31530572 unknown unknown unknown iquantitative_dipstick_ leukocyte_esterase_uri unknown 62967763 unknown unknown unknown ne_by_dipstick appearance_urine unknown 02886892 unknown unknown unknow n urinalysis_routine unknown 28045410 unknown unknown unkn own Appearance_of_Urine unknown 86434575 unknown unknown unk nown Bilirubin.total_Presen unknown 20673050 unknown unknown unknown ce_in_Urine_by_Test_str ip Color_of_Urine unknown 75352323 unknown unknown unknown Glucose_Mass_volume_in unknown 09308774 unknown unknown unknown _Urine_by_Test_strip Ketones_Mass_volume_in unknown 31615352 unknown unknown unknown _Urine_by_Test_strip Leukocyte_esterase_Pre unknown 37292736 unknown unknown unknown sence_in_Urine_by_Test_ strip Nitrite_Presence_in_Ur unknown 22396918 unknown unknown unknown ine_by_Test_strip pH_of_Urine_by_Test_st unknown 03610034 unknown unknown unknown rip Specific_gravity_of_Ur unknown 68505720 unknown unknown unknown ine_by_Test_strip Urobilinogen_Presence_ unknown 20200717 unknown unknown unknown in_Urine_by_Test_strip DIPSTICK_URINE_STRIP_L unknown 82502772 unknown unknown unknown OT_NUMBER Urine_HCG_Lot_Number_C unknown 27940084 unknown unknown unknown LIA_Waived_ Urine_HCG_Exp_Date_CLI unknown 63585361 unknown unknown unknown A_Waived_ protein_urine_semiquan unknown 11073122 unknown unknown unknown titative_dipstick_ glucose_urine_semiquan unknown 25338555 unknown unknown unknown titative Erythrocytes_area_in_U unknown 90359562 unknown unknown unknown rine_sediment_by_Micros copy_high_power_field RBC_urine_dipstick unknown 11097960 unknown unknown unkn own Albumin_Presence_in_Ur unknown 95422197 unknown unknown unknown ine Choriogonadotropin_pre unknown 13218708 unknown unknown unknown gnancy_test_Presence_in _Urine human_chorionic_gonado unknown 41824301 unknown unknown unknown tropin_urine_qualitativ e_urine_pregnancy_test_ urine_color unknown 89506165 unknown unknown unknown bilirubin_urine unknown 63601483 unknown unknown unknown ketones_urine_by_test_ unknown 20200717 unknown unknown unknown strip nitrite_urine_semiquan unknown 00645474 unknown unknown unknown titative pH_urine_semiquantitat unknown 40310162 unknown unknown unknown eloy specific_gravity_urine unknown 35928000 unknown unknown unknown urobilinogen_urine_sem unknown 01110553 unknown unknown unknown iquantitative_dipstick_ leukocyte_esterase_uri unknown 19572315 unknown unknown unknown ne_by_dipstick appearance_urine unknown 84634289 unknown unknown unknow n urinalysis_routine unknown 58032893 unknown unknown unkn own Appearance_of_Urine unknown 82289181 unknown unknown unk nown Bilirubin.total_Presen unknown 15741036 unknown unknown unknown ce_in_Urine_by_Test_str ip Color_of_Urine unknown 31420972 unknown unknown unknown Glucose_Mass_volume_in unknown 58382999 unknown unknown unknown _Urine_by_Test_strip Ketones_Mass_volume_in unknown 85738612 unknown unknown unknown _Urine_by_Test_strip Leukocyte_esterase_Pre unknown 36467365 unknown unknown unknown sence_in_Urine_by_Test_ strip Nitrite_Presence_in_Ur unknown 78641584 unknown unknown unknown ine_by_Test_strip pH_of_Urine_by_Test_st unknown 00537772 unknown unknown unknown rip Specific_gravity_of_Ur unknown 26772506 unknown unknown unknown ine_by_Test_strip Urobilinogen_Presence_ unknown 13848349 unknown unknown unknown in_Urine_by_Test_strip facility observation status value reference units lab abnor mal line range code notes All DIPSTICK_URI unknown 5067 unknown _1014 unknown unknown NE_STRIP_LOT_ 00 NUMBER All Urine_HCG_Lo unknown [id number] unknown _1149 unkn own unknown t_Number_CLIA 9 40 _Waived_ All Urine_HCG_Ex unknown 2021-11-24 unknown _1149 unkn own unknown p_Date_CLIA_W 1 41 aived_ All protein_urin unknown negative unknown _118 unkno wn unknown e_semiquantit ative_dipstic k_ All glucose_urin unknown negative unknown _123 unkno wn unknown e_semiquantit ative All Erythrocytes unknown non-hemol unknown _1394 unkn own unknown _area_in_Urin yzed trace 5-1 e_sediment_by _Microscopy_h igh_power_fie ld All RBC_urine_di unknown non-hemol unknown _1700 unkn own unknown pstick yzed trace 005 All Albumin_Pres unknown negative unknown _1753 unkno wn unknown ence_in_Urine -3 All Choriogonado unknown Negative unknown _2106 unkno wn unknown tropin_pregna -3 ncy_test_Pres ence_in_Urine All human_chorio unknown Negative unknown _2578 unkno wn unknown nic_gonadotro pin_urine_qua litative_urin e_pregnancy_t est_ All urine_color unknown yellow unknown _2751 unknown unknown All bilirubin_ur unknown 1+ unknown _319 unknown unknown ine All ketones_urin unknown small unknown _322 unknown unknown e_by_test_str (15) ip All nitrite_urin unknown negative unknown _323 unkno wn unknown e_semiquantit ative All pH_urine_sem unknown 6 unknown _324 unknown unknown iquantitative All specific_gra unknown 1.015 unknown _325 unknown unknown vity_urine All urobilinogen unknown 0.2 unknown _326 unknown unknown _urine_semiqu antitative_di pstick_ All leukocyte_es unknown 1+ unknown _327 unknown unknown terase_urine_ by_dipstick All appearance_u unknown hazy unknown _328 unknown unknown rine All urinalysis_r unknown Clean unknown _47 unknown unknown outine Catch All Appearance_o unknown hazy unknown _5767 unknown unknown f_Urine -9 All Bilirubin.to unknown 1+ unknown _5770 unknown unknown tal_Presence_ -3 in_Urine_by_T est_strip All Color_of_Uri unknown yellow unknown _5778 unknown unknown ne -6 All Glucose_Mass unknown negative unknown _5792 unkno wn unknown _volume_in_Ur -7 ine_by_Test_s trip All Ketones_Mass unknown small unknown _5797 unknown unknown _volume_in_Ur (15) -6 ine_by_Test_s trip All Leukocyte_es unknown 1+ unknown _5799 unknown unknown terase_Presen -2 ce_in_Urine_b y_Test_strip All Nitrite_Pres unknown negative unknown _5802 unkno wn unknown ence_in_Urine -4 _by_Test_stri p All pH_of_Urine_ unknown 6 unknown _5803 unknown unknown by_Test_strip -2 All Specific_gra unknown 1.015 unknown _5811 unknown unknown vity_of_Urine -5 _by_Test_stri p All Urobilinogen unknown 0.2 unknown _5818 unknown unknown _Presence_in_ -0 Urine_by_Test _strip All DIPSTICK_URI unknown 5067 unknown _1014 unknown unknown NE_STRIP_LOT_ 00 NUMBER All Urine_HCG_Lo unknown [id number] unknown _1149 unkn own unknown t_Number_CLIA 9 40 _Waived_ All Urine_HCG_Ex unknown 2021-11-24 unknown _1149 unkn own unknown p_Date_CLIA_W 1 41 aived_ All protein_urin unknown negative unknown _118 unkno wn unknown e_semiquantit ative_dipstic k_ All glucose_urin unknown negative unknown _123 unkno wn unknown e_semiquantit ative All Erythrocytes unknown non-hemol unknown _1394 unkn own unknown _area_in_Urin yzed trace 5-1 e_sediment_by _Microscopy_h igh_power_fie ld All RBC_urine_di unknown non-hemol unknown _1700 unkn own unknown pstick yzed trace 005 All Albumin_Pres unknown negative unknown _1753 unkno wn unknown ence_in_Urine -3 All Choriogonado unknown Negative unknown _2106 unkno wn unknown tropin_pregna -3 ncy_test_Pres ence_in_Urine All human_chorio unknown Negative unknown _2578 unkno wn unknown nic_gonadotro pin_urine_qua litative_urin e_pregnancy_t est_ All urine_color unknown yellow unknown _2751 unknown unknown All bilirubin_ur unknown 1+ unknown _319 unknown unknown ine All ketones_urin unknown small unknown _322 unknown unknown e_by_test_str (15) ip All nitrite_urin unknown negative unknown _323 unkno wn unknown e_semiquantit ative All pH_urine_sem unknown 6 unknown _324 unknown unknown iquantitative All specific_gra unknown 1.015 unknown _325 unknown unknown vity_urine All urobilinogen unknown 0.2 unknown _326 unknown unknown _urine_semiqu antitative_di pstick_ All leukocyte_es unknown 1+ unknown _327 unknown unknown terase_urine_ by_dipstick All appearance_u unknown hazy unknown _328 unknown unknown rine All urinalysis_r unknown Clean unknown _47 unknown unknown outine Catch All Appearance_o unknown hazy unknown _5767 unknown unknown f_Urine -9 All Bilirubin.to unknown 1+ unknown _5770 unknown unknown tal_Presence_ -3 in_Urine_by_T est_strip All Color_of_Uri unknown yellow unknown _5778 unknown unknown ne -6 All Glucose_Mass unknown negative unknown _5792 unkno wn unknown _volume_in_Ur -7 ine_by_Test_s trip All Ketones_Mass unknown small unknown _5797 unknown unknown _volume_in_Ur (15) -6 ine_by_Test_s trip All Leukocyte_es unknown 1+ unknown _5799 unknown unknown terase_Presen -2 ce_in_Urine_b y_Test_strip All Nitrite_Pres unknown negative unknown _5802 unkno wn unknown ence_in_Urine -4 _by_Test_stri p All pH_of_Urine_ unknown 6 unknown _5803 unknown unknown by_Test_strip -2 All Specific_gra unknown 1.015 unknown _5811 unknown unknown vity_of_Urine -5 _by_Test_stri p All Urobilinogen unknown 0.2 unknown _5818 unknown unknown _Presence_in_ -0 Urine_by_Test _strip Vital Signs date measurement value source 20200522 BMI 25.03 kg/m2 20200522 BP_diastolic 70 mm[Hg] 20200522 BP_systolic 116 mm[Hg] 20200522 heart_rate 64 /min 20200522 height_metric 154.94 cm 20200522 height_standard 61 in 20200522 respiration_rate 16 /min 20200522 temperature_metric 37.06 C 20200522 temperature_standard 98.7 F 20200522 weight_metric 59.87 kg 20200522 weight_standard 132 lb date measurement value source 20200524 BMI 25.03 kg/m2 20200524 BP_diastolic 71 mm[Hg] 20200524 BP_systolic 110 mm[Hg] 20200524 heart_rate 64 /min 20200524 height_metric 154.94 cm 20200524 height_standard 61 in 20200524 respiration_rate 12 /min 20200524 temperature_metric 36.89 C 20200524 temperature_standard 98.4 F 20200524 weight_metric 59.87 kg 20200524 weight_standard 132 lb date measurement value source 20200717 BMI 25.64 kg/m2 20200717 BP_diastolic 82 mm[Hg] 20200717 BP_systolic 121 mm[Hg] 20200717 heart_rate 63 /min 20200717 height_metric 154.94 cm 20200717 height_standard 61 in 20200717 respiration_rate 17 /min 20200717 temperature_metric 36.78 C 20200717 temperature_standard 98.2 F 20200717 weight_metric 61.33 kg 20200717 weight_standard 135.2 lb 20200717 BMI 25.64 kg/m2 20200717 BP_diastolic 82 mm[Hg] 20200717 BP_systolic 121 mm[Hg] 20200717 heart_rate 63 /min 20200717 height_metric 154.94 cm 20200717 height_standard 61 in 20200717 respiration_rate 17 /min 20200717 temperature_metric 36.78 C 20200717 temperature_standard 98.2 F 20200717 weight_metric 61.33 kg 20200717 weight_standard 135.2 lb Social History date description facility [id number]
== END 2020-07-24 20:40 | disposition home or self-care (01) ==
LOC: ED 18:20
DX: A08.4 Viral intestinal infection, unspecified (principal); Z20.822 Contact with and (suspected) exposure to COVID-19
CPT/HCPCS: 0202U; 36415; 80053; 81003; 81025; 83605; 83690; 85025; 87040; 99283; 99284; 81001; 87086